=== PATIENT | female | born 1935 | race Caucasian/White ===

== ENCOUNTER → 2016-03-15 | Outpatient (REF) | payer MEDICARE, BC ==
[~2016-03-15] MED LIST: /WARF5TA OR; ALPH0.156 OU; ALPHAGAN; ASPI325T; B COCAP5; BABY81CH; CALC600T10; CALCIUM AND VIT D; COQ 10; DEPA500T2 OR; ECOT500T; ESTR3TA; FISHCAP; FLON0.05; HYDR25TA6; LIPI10TA OR; LISI10TA4 OR; LOPR50TA; LOPR50TA PO; MAGN500T2 PO; MULTIVITAMIN; NITR0.4S; OSTEO BI FLEX; PLAV75TA2 PO; SIMV10TA2 PO; SIMV40TA2; SLOWTAB; TUMS500C; VITAMIN D; XALATAN 0.005% OU; XALATIN; ocuvite PO; xalatan
== END ==
LOC: M LAB REF 11:53
PROVIDERS: ATTEND Family Medicine
DX: D51.9 Vitamin B12 deficiency anemia, unspecified (principal)

== ENCOUNTER 2017-08-15 14:40 | Emergency (ER) | payer MEDICARE, BC ==
[2017-08-15] MEDS: ADACEL/BOOSTRIX VACCINE (DIPHTH/PERTUSS/ACELL/TETANUS)0.5ML SYR (90715) IM (16:00)
[2017-08-15] MEDS: ACETAMINOPHEN TAB 650MG DOSE (2X325MG) PO (16:00)
== END 2017-08-15 17:26 | disposition home or self-care (01) ==
LOC: M ED 14:40
DX: S39.012A Strain of muscle, fascia and tendon of lower back, initial encounter (principal); M51.37 Other intervertebral disc degeneration, lumbosacral region; S50.811A Abrasion of right forearm, initial encounter; X58.XXXA Exposure to other specified factors, initial encounter; Y92.89 Other specified places as the place of occurrence of the external cause; M54.30 Sciatica, unspecified side; I10 Essential (primary) hypertension; E78.5 Hyperlipidemia, unspecified; Z86.73 Personal history of transient ischemic attack (TIA), and cerebral infarction without residual deficits; Z85.828 Personal history of other malignant neoplasm of skin; Z87.891 Personal history of nicotine dependence; Z79.899 Other long term (current) drug therapy; Z79.02 Long term (current) use of antithrombotics/antiplatelets; Z79.01 Long term (current) use of anticoagulants
CPT/HCPCS: 90715

== ENCOUNTER → 2017-08-21 | Outpatient (REF) | payer MEDICARE, BC ==
[2017-08-21 10:38] LABS: INR 3.76; PROTHROMBIN TIME 38.1 SECONDS (12.1-14.4)
== END ==
LOC: M LAB REF 09:50
DX: I48.2 Chronic atrial fibrillation (principal)
CPT/HCPCS: 85610

== ENCOUNTER → 2017-08-30 | Outpatient (REF) | payer MEDICARE, BC ==
[2017-08-30 14:15] LABS: TOTAL T3 92.9 NG/DL (60.0-181.0)
[2017-08-30 14:22] LABS: FREE T4 1.02 NG/DL (0.76-1.46); THYROXINE (T4) 8.9 UG/DL (4.5-12.0)
== END ==
LOC: M LABNEURO 08:34
DX: E03.9 Hypothyroidism, unspecified (principal)
CPT/HCPCS: 84443

== ENCOUNTER 2017-10-31 09:44 | Emergency (ER) | payer MEDICARE, BC | END 2017-10-31 12:03 | disposition home or self-care (01) | LOC: M ED 09:44 | DX: M54.42 Lumbago with sciatica, left side (principal); I10 Essential (primary) hypertension | CPT/HCPCS: 99282 ==

== ENCOUNTER → 2018-11-15 | Outpatient (CLI) | payer MEDICARE, BC ==
[~2018-11-15] MED LIST changes: -/WARF5TA OR; +ACET-716 PO; +BENZ200C70; +CLOP75TA2; +COUM1TAB17 OR; +CYCL10TA PO; +DOXY100T16; +ISOS5TA; +LEVE750T5; +LISI-542; +MAG400TA; +PRED20TA PO; +ROSU10TA6; +SOTA80TA53
[2018-11-15 10:14] LABS: BASO % 0.1 % (0.0-1.0); EOS # 0.1 10^3/uL (0.0-0.5); EOS % 1.6 % (0.0-3.0); HEMATOCRIT 38.1 % (36.0-47.0); HEMOGLOBIN 12.7 g/dl (12.0-15.5); LYMPH % 27.2 % (24.0-44.0); MEAN CORPUSCULAR HEMOGLOBIN 30.8 pg (27.0-33.0); MEAN CORPUSCULAR HGB CONC 33.3 g/dl (32.0-36.5); MEAN CORPUSCULAR VOLUME 92.3 fl (80.0-96.0); MONO # 0.5 10^3/uL (0.0-0.8); MONO % 6.8 % (0.0-5.0); NEUTROPHILS # 4.7 10^3/uL (1.5-8.5); PLATELET COUNT, AUTOMATED 226 10^3/uL (150-450); RED BLOOD COUNT 4.13 10^6/uL (4.00-5.40); WHITE BLOOD COUNT 7.3 10^3/uL (4.0-10.0)
[2018-11-15 10:42] LABS: BLOOD UREA NITROGEN 27 MG/DL (7-18); CALCIUM LEVEL 9.2 MG/DL (8.8-10.2); CARBON DIOXIDE LEVEL 32 MEQ/L (21-32); CHLORIDE LEVEL 106 MEQ/L (98-107); CREATININE FOR GFR 0.76 MG/DL (0.55-1.30); GLOMERULAR FILTRATION RATE > 60.0 (>32); GLUCOSE, FASTING 89 MG/DL (70-100); POTASSIUM SERUM 4.6 MEQ/L (3.5-5.1); SODIUM LEVEL 143 MEQ/L (136-145)
== END ==
LOC: M LAB 09:15
PROVIDERS: ATTEND Internal Medicine Interventional Cardiology
DX: R94.39 Abnormal result of other cardiovascular function study (principal)

== ENCOUNTER 2019-03-26 07:20 | Emergency (ER) | payer MEDICARE, BC ==
[~2019-03-26] VITALS: Ht 162.6 cm; Wt 66.8 kg
[~2019-03-26 07:20] MED LIST changes: -DOXY100T16; +DOXY100T27; -ISOS5TA; +ISOS5TA PO; -LEVE750T5; +LEVE750T5 PO; -ROSU10TA6; +ROSU10TA6 PO; -SOTA80TA53; +SOTA80TA53 PO
[2019-03-26] MEDS ORDERED: ELIQ2.5T PO (07:54)
[2019-03-26] MEDS ORDERED: NITR0.4S14 SL (07:54)
[2019-03-26] MEDS ORDERED: ULTR5TAB PO (07:54)
[2019-03-26] MEDS ORDERED: ACET-683 PO (07:54)
[2019-03-26] MEDS ORDERED: EQL50TAB2 PO (07:54)
[2019-03-26] MEDS ORDERED: FURO40TA2 PO (07:54)
[2019-03-26] MEDS ORDERED: D 202000 PO (07:54)
[2019-03-26] MEDS ORDERED: CO Q10CA PO (07:54)
[2019-03-26] MEDS ORDERED: MECL1TAB31 PO (07:54)
[2019-03-26] MEDS ORDERED: VITA500T40 PO (07:54)
[2019-03-26] MEDS ORDERED: NS 500 ML IV ONE ×2 (08:30→11:00)
[2019-03-26 08:37] LABS: BASO % 0.3 % (0.0-1.0); EOS % 0.5 % (0.0-3.0); HEMATOCRIT 42.8 % (36.0-47.0); HEMOGLOBIN 13.8 g/dl (12.0-15.5); LYMPH # 1.7 10^3/uL (1.5-5.0); LYMPH % 21.8 % (24.0-44.0); MEAN CORPUSCULAR HEMOGLOBIN 28.8 pg (27.0-33.0); MEAN CORPUSCULAR HGB CONC 32.2 g/dl (32.0-36.5); MEAN CORPUSCULAR VOLUME 89.2 fl (80.0-96.0); MONO # 0.4 10^3/uL (0.0-0.8); MONO % 5.5 % (0.0-5.0); NEUTROPHILS # 5.5 10^3/uL (1.5-8.5); NEUTROPHILS % 71.6 % (36.0-66.0); PLATELET COUNT, AUTOMATED 253 10^3/uL (150-450); WHITE BLOOD COUNT 7.7 10^3/uL (4.0-10.0)
[2019-03-26 08:48] LABS: INR 1.37; PROTHROMBIN TIME 16.6 SECONDS (11.8-14.0)
[2019-03-26 08:49] LABS: PARTIAL THROMBOPLASTIN TIME 34.3 SECONDS (25.0-38.4)
--- NOTE | 2019-03-26 09:03 | REP ---
Clinical: Syncope/near-syncopal episode . Comparison: 04/12/2014 . Findings: The mediastinum and cardiac silhouette are stable and within normal limits for portable technique. The lung jimenez demonstrate chronic interstitial changes without acute consolidation, effusion, or pneumothorax. Skeletal structures are intact. Impression: No acute cardiopulmonary process appreciated. Electronically Signed by Gerson Grover MD 03/26/2019 08:54 A
[2019-03-26 09:16] LABS: BLOOD UREA NITROGEN 27 MG/DL (7-18); CALCIUM LEVEL 9.3 MG/DL (8.8-10.2); CARBON DIOXIDE LEVEL 26 MEQ/L (21-32); CHLORIDE LEVEL 106 MEQ/L (98-107); CK-MB VALUE MASS 1.3 NG/ML (<3.6); CPK CREATINE PHOSPHOKINASE 78 U/L (26-192); CREATININE FOR GFR 0.89 MG/DL (0.55-1.30); FREE T4 1.18 NG/DL (0.76-1.46); GLOMERULAR FILTRATION RATE > 60.0 (>32); GLUCOSE, FASTING 109 MG/DL (70-100); MAGNESIUM LEVEL 2.2 MG/DL (1.8-2.4); MB/CK RELATIVE INDEX 1.67 (< OR =4); NT-PRO BNP 1842 PG/ML (<450); POTASSIUM SERUM 4.5 MEQ/L (3.5-5.1); SODIUM LEVEL 139 MEQ/L (136-145); TROPONIN I 0.03 NG/ML (< 0.10)
[2019-03-26 13:47] VITALS: BP 152/79
--- NOTE | 2019-03-26 20:00 | ECGEPIP ---
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
== END 2019-03-26 14:13 | disposition home or self-care (01) ==
LOC: M ED 07:20
DX: I95.1 Orthostatic hypotension (principal); E86.0 Dehydration; I48.91 Unspecified atrial fibrillation; I45.10 Unspecified right bundle-branch block; I25.2 Old myocardial infarction; I10 Essential (primary) hypertension; Z86.73 Personal history of transient ischemic attack (TIA), and cerebral infarction without residual deficits; Z95.5 Presence of coronary angioplasty implant and graft; Z85.828 Personal history of other malignant neoplasm of skin; Z79.01 Long term (current) use of anticoagulants; Z79.899 Other long term (current) drug therapy

== ENCOUNTER → 2022-06-29 | Outpatient (REF) | payer MEDICARE, BC ==
[~2022-06-29] MED LIST changes: +ACET-683 PO; +CO Q10CA PO; +CYCL-707 PO; -CYCL10TA PO; +D 202000 PO; +ELIQ2.5T PO; +EQL50TAB2 PO; +FURO40TA2 PO; -LISI-542; +LISI5TAB11; -MAG400TA; +MAGN400T35; +MECL1TAB31 PO; +NITR0.4S14 SL; +ULTR5TAB PO; +VITA500T40 PO
== END ==
LOC: M LAB REF 16:12
PROVIDERS: ATTEND Nurse Practitioner Family
DX: N39.0 Urinary tract infection, site not specified (principal); R06.02 Shortness of breath

== ENCOUNTER → 2022-07-07 | Outpatient (CLI) | payer MEDICARE, BC ==
[~2022-07-07] MED LIST changes: +ISOVUE-370 76% 100ML VIAL As Ordered ONE
== END ==
LOC: M RAD 08:53
PROVIDERS: ATTEND Nurse Practitioner Family
DX: N28.1 Cyst of kidney, acquired (principal); I51.7 Cardiomegaly; K57.30 Diverticulosis of large intestine without perforation or abscess without bleeding; R31.0 Gross hematuria
CPT/HCPCS: 74178; Q9967

== ENCOUNTER → 2022-07-27 | Outpatient (REF) | payer MEDICARE, BC ==
[~2022-07-27] MED LIST changes: -ISOVUE-370 76% 100ML VIAL As Ordered ONE
== END ==
LOC: M LAB REF 12:09
PROVIDERS: ATTEND Nurse Practitioner Family
DX: I48.20 Chronic atrial fibrillation, unspecified (principal); R06.02 Shortness of breath; I50.22 Chronic systolic (congestive) heart failure

== ENCOUNTER 2022-10-29 10:05 | Emergency (ER) | payer MEDICARE, BC ==
[~2022-10-29 10:05] MED LIST changes: +MECL-209 PO; -MECL1TAB31 PO
[2022-10-29] MEDS ORDERED: LISI10TA22 (10:49)
[2022-10-29] MEDS ORDERED: METO1TAB7 PO (10:49)
[2022-10-29] MEDS ORDERED: TORS20TA2 (10:49)
[2022-10-29] MEDS ORDERED: ECOT81TA5 PO (10:49)
[2022-10-29] MEDS ORDERED: ROSU10TA6 PO (10:49)
[2022-10-29 12:01] LABS: BASO % 0.1 % (0.0-1.0); HEMATOCRIT 39.9 % (36.0-47.0); HEMOGLOBIN 13.2 g/dl (12.0-15.5); LYMPH # 0.7 10^3/uL (1.5-5.0); LYMPH % 5.1 % (24.0-44.0); MEAN CORPUSCULAR HEMOGLOBIN 30.9 pg (27.0-33.0); MEAN CORPUSCULAR HGB CONC 33.1 g/dl (32.0-36.5); MEAN CORPUSCULAR VOLUME 93.4 fl (80.0-96.0); MONO # 1.1 10^3/uL (0.0-0.8); NEUTROPHILS # 11.4 10^3/uL (1.5-8.5); NEUTROPHILS % 86.1 % (36.0-66.0); PLATELET COUNT, AUTOMATED 232 10^3/uL (150-450); RED BLOOD COUNT 4.27 10^6/uL (4.00-5.40); WHITE BLOOD COUNT 13.2 10^3/uL (4.0-10.0)
[2022-10-29 12:12] LABS: INR 1.38; PROTHROMBIN TIME 16.6 SECONDS (12.5-14.5)
[2022-10-29 12:13] LABS: PARTIAL THROMBOPLASTIN TIME 27.3 SECONDS (24.8-34.2)
[2022-10-29 12:33] LABS: ETHYL ALCOHOL (ETHANOL) 0.004 % (0.000-0.010)
[2022-10-29 12:35] LABS: BLOOD UREA NITROGEN 37 MG/DL (9-23); CALCIUM LEVEL 9.4 MG/DL (8.3-10.6); CARBON DIOXIDE LEVEL 30 MMOL/L (20-31); CHLORIDE LEVEL 101 MMOL/L (98-107); CREATININE FOR GFR 0.87 MG/DL (0.55-1.30); GLOMERULAR FILTRATION RATE > 60.0 (>32); GLUCOSE, FASTING 137 MG/DL (74-106); MAGNESIUM LEVEL 2.2 MG/DL (1.8-2.4); POTASSIUM SERUM 4.3 MMOL/L (3.5-5.1); SODIUM LEVEL 139 MMOL/L (136-145)
[2022-10-29 12:45] LABS: FREE T4 1.22 NG/DL (0.89-1.76)
[2022-10-29 12:46] LABS: THYROID STIMULATING HORMONE 0.715 uIU/ML (0.55-4.78)
[2022-10-29] MEDS ORDERED: ACETAMINOPHEN *IV* 1,000 MG in IV 1 EA IV ONE (14:35)
[2022-10-29 16:47] VITALS: TEMP 97; O2SAT 97
[2022-10-29 16:59] VITALS: BP 105/56
== END 2022-10-29 17:20 | disposition home or self-care (01) ==
LOC: EDBD 10:05 → M ED 10:05
DX: S80.02XA Contusion of left knee, initial encounter (principal); W01.0XXA Fall on same level from slipping, tripping and stumbling without subsequent striking against object, initial encounter; I48.91 Unspecified atrial fibrillation; I45.10 Unspecified right bundle-branch block; I10 Essential (primary) hypertension; Y92.009 Unspecified place in unspecified non-institutional (private) residence as the place of occurrence of the external cause; Z86.79 Personal history of other diseases of the circulatory system; Z79.01 Long term (current) use of anticoagulants; Z79.811 Long term (current) use of aromatase inhibitors; Z79.899 Other long term (current) drug therapy
CPT/HCPCS: 70450; 71045; 72125; 73564; 80048; 82077; 83735; 84439; 84443; 85025; 85610; 85730; 87486; 87581; 87633; 87798; 93005; 93971; 96374; 99285; J0131

== ENCOUNTER → 2023-01-23 | Outpatient (REF) | payer MEDICARE, BC ==
[~2023-01-23] MED LIST changes: +ECOT81TA5 PO; +LISI10TA22; +METO1TAB7 PO; +TORS20TA2
== END ==
LOC: M LAB REF 11:56
PROVIDERS: ATTEND Family Medicine
DX: I48.20 Chronic atrial fibrillation, unspecified (principal)

== ENCOUNTER → 2023-04-07 | Outpatient (REF) | payer MEDICARE, BC | LOC: M LAB REF 13:19 | PROVIDERS: ATTEND Family Medicine | DX: I48.20 Chronic atrial fibrillation, unspecified (principal) ==